=== PATIENT | female | born 1980 | race Hispanic/Latino ===

== ENCOUNTER 2020-05-05 18:02 | Emergency (ER) | payer OTHER, SELFPAY ==
[2020-05-05 18:35] LABS: BASOPHILS % (AUTO) 0.7 % (0.0-5.0); EOSINOPHILS % (AUTO) 1.4 % (0.0-8.0); HEMATOCRIT 44.8 % (36-48); LYMPHOCYTES % (AUTO) 21.9 % (21.0-51.0); MEAN CORPUSCULAR HEMOGLOBIN 29.3 pg (27.0-33.0); MEAN CORPUSCULAR HGB CONC 33.5 g/dL (32.0-36.0); MEAN CORPUSCULAR VOLUME 87.5 fL (79-99); MONOCYTES % (AUTO) 10.9 % (3.0-13.0); NEUTROPHILS % (AUTO) 64.8 % (40.0-77.0); PLATELET COUNT (AUTO) 179 K/uL (130-400); RED BLOOD CELL COUNT(AUTO) 5.12 MIL/uL (4.00-5.50); RED CELL DISTRIBUTION WIDTH 12.8 % (11.0-15.5); WHITE BLOOD COUNT (AUTO) 6.9 K/uL (4.8-10.8)
[2020-05-05 18:36] LABS: APPEARANCE,URINE Clear (CLEAR); BILIRUBIN,URINE Negative (NEGATIVE); COLOR,URINE Yellow (YELLOW); GLUCOSE, URINE (UA) >=1000 mg/dL (NEGATIVE); KETONES,URINE Negative (NEGATIVE); LEUKOCYTE ESTERASE ,URINE Negative (NEGATIVE); NITRATE,URINE Negative (NEGATIVE); OCCULT BLOOD,URINE Small (NEGATIVE); PROTEIN,URINE Negative (NEGATIVE)
[2020-05-05 18:42] LABS: HCG,QUAL RESULT NEGATIVE (NEGATIVE)
[2020-05-05] MEDS ORDERED: ACETAMINOPHEN EXTRA STRENGTH 500 MG TABLET ONE (18:44)
[2020-05-05 18:47] LABS: BACTERIA,URINE Few /HPF (None Seen)
[2020-05-05 18:51] LABS: SQUAMOUS EPITHELIAL CELL,UR Moderate /HPF (0-2)
[2020-05-05 18:54] LABS: CREATININE 0.8 mg/dL (0.5-1.5); POTASSIUM 4.1 mmol/L (3.5-5.1)
[2020-05-05 18:59] LABS: ALBUMIN 3.8 g/dL (3.5-5.0); BILIRUBIN,TOTAL 0.3 mg/dL (0.2-1.0); TOTAL PROTEIN, SERUM 7.9 g/dL (6.0-8.3)
[2020-05-05 19:12] LABS: ABG OXYGEN SATURATION 43.2 % (95.0-99.0); BASE EXCESS,VENOUS BLOOD GAS -2.9 (-2.0-3.0); HCO3,VENOUS BLOOD GAS 23.4 (21.0-28.0); PCO2,VENOUS BLOOD GAS 46 (32-45); PH,VENOUS BLOOD GAS 7.323 (7.350-7.450)
[2020-05-05 19:16] LABS: RAPID GROUP A STREP POSITIVE (NEGATIVE)
[2020-05-05] MEDS ORDERED: CEFTRIAXONE SODIUM 1 GM ONE (19:28)
[2020-05-05] MEDS ORDERED: INSULIN HUMULIN R 100 UNIT/ML 3ML ONE (19:28)
[2020-05-05] MEDS ORDERED: SODIUM CHLORIDE 0.9% 50 ML IV ONE (19:29)
== END 2020-05-05 20:07 | disposition home or self-care (01) ==
LOC: EDH 18:02
DX: J02.0 Streptococcal pharyngitis (principal); E11.65 Type 2 diabetes mellitus with hyperglycemia; Z20.828 Contact with and (suspected) exposure to other viral communicable diseases; I10 Essential (primary) hypertension; Z98.890 Other specified postprocedural states
CPT/HCPCS: 36415; 36600; 71045; 80053; 81001; 81025; 82803; 82948; 83605; 85025; 87040 ×2; 87804 ×2; 87880; 96361; 96374; 96375; 99284; J0696; J1815

== ENCOUNTER 2024-06-19 20:04 | Emergency (ER) | payer SELFPAY ==
[~2024-06-19] VITALS: Ht 165.1 cm; Wt 98.9 kg
[2024-06-19] MEDS ORDERED: KETOROLAC 15MG/ML VIAL (15MG/ML) IV ONE (20:30)
[2024-06-19] MEDS ORDERED: METOCLOPRAMIDE 10 MG/2 ML VIAL IVP ONE (20:30)
[2024-06-19 21:03] VITALS: BP 144/91; PULSE 93; RESP 20
[2024-06-19 21:41] LABS: BASOPHILS # (AUTO) 0.09 K/uL (0.00-0.20); BASOPHILS % (AUTO) 0.6 % (0.0-5.0); EOSINOPHILS # (AUTO) 0.14 K/uL (0.00-0.70); EOSINOPHILS % (AUTO) 0.9 % (0.0-8.0); HEMATOCRIT 40.5 % (36-48); IMMATURE GRANULOCYTE ABSOLUTE 0.07 K/uL (0-1); LYMPHOCYTES # (AUTO) 3.4 K/uL (1.0-4.8); LYMPHOCYTES % (AUTO) 21.7 % (21.0-51.0); MEAN CORPUSCULAR HGB CONC 33.3 g/dL (32.0-36.0); MEAN CORPUSCULAR VOLUME 86.9 fL (79-99); MONOCYTES # (AUTO) 1.1 K/uL (0.1-1.0); MONOCYTES % (AUTO) 7.3 % (3.0-13.0); NEUTROPHILS # (AUTO) 10.7 K/uL (1.8-7.7); PLATELET COUNT (AUTO) 205 K/uL (130-400); RED BLOOD CELL COUNT(AUTO) 4.66 MIL/uL (4.00-5.50); RED CELL DISTRIBUTION WIDTH 12.8 % (11.0-15.5); WHITE BLOOD COUNT (AUTO) 15.4 K/uL (4.8-10.8)
[2024-06-19 21:49] LABS: CREATININE 0.7 mg/dL (0.5-1.0); POTASSIUM 4.2 mmol/L (3.5-5.1)
[2024-06-19] MEDS ORDERED: AMOX-426 PO (22:55)
[2024-06-19] MEDS ORDERED: KETO10TA2 PO (22:55)
[2024-06-20] MEDS: acetaMINOPHEN/coDEINE 120/12MG 5ML PO ONE (00:19)
[2024-06-20] MEDS: cefTRIAXone 1G VIAL IM ONE (00:19)
[2024-06-20] MEDS: METOCLOPRAMIDE 10 MG/2 ML VIAL IM ONE (00:19)
[2024-06-20] MEDS: CYCLOBENZAPRINE HCL 10 MG TABLET PO ONE (00:20)
[2024-06-20] MEDS: KETOROLAC 15MG/ML VIAL (15MG/ML) IM ONE (00:20)
== END 2024-06-20 00:32 | disposition home or self-care (01) ==
LOC: EDH 20:04
DX: J32.9 Chronic sinusitis, unspecified (principal); E11.9 Type 2 diabetes mellitus without complications; E78.00 Pure hypercholesterolemia, unspecified; I10 Essential (primary) hypertension
CPT/HCPCS: 99285; 70450; 84484; 80048; 85025; 36415; 93005; 96372 ×3; J0696; J2765; J1885